=== PATIENT | male | born 1985 | race Caucasian/White ===

== ENCOUNTER → 2016-11-06 | Day surgery (SDC) | payer OTHER ==
[~2016-11-06] MED LIST: PICC LINE 8 ML FLUSH PROTOCOL IVPUSH PRN
== END | disposition home or self-care (01) ==
LOC: JRADIR 09:53
PROVIDERS: ATTEND Nurse Practitioner Acute Care
PROC: 02HV33Z Insertion of Infusion Device into Superior Vena Cava, Percutaneous Approach (ICD-10-PCS; principal; 2016-11-06)
PROC: B518YZA Fluoroscopy of Superior Vena Cava using Other Contrast, Guidance (ICD-10-PCS; 2016-11-06)
DX: M86.9 Osteomyelitis, unspecified (principal)
CPT/HCPCS: 36569; 77001-TC; C1751

== ENCOUNTER → 2017-09-05 | Day surgery (SDC) | payer OTHER | END | disposition home or self-care (01) | LOC: JRADIR 09:48 | PROVIDERS: ATTEND Nurse Practitioner Acute Care | PROC: 02HV33Z Insertion of Infusion Device into Superior Vena Cava, Percutaneous Approach (ICD-10-PCS; principal; 2017-09-05) | PROC: B518ZZA Fluoroscopy of Superior Vena Cava, Guidance (ICD-10-PCS; 2017-09-05) | DX: L03.90 Cellulitis, unspecified (principal) | CPT/HCPCS: 36569; 77001-TC; C1751 ==